=== PATIENT | male | born 1960 | race Caucasian/White ===

== ENCOUNTER 2025-01-03 06:16 | Day surgery (SDC) | payer OTHER, SELFPAY | END 2025-01-03 15:51 | disposition home or self-care (01) | LOC: GI 06:16 | PROVIDERS: ATTENDING PHYSICIAN Internal Medicine Gastroenterology | DX: Z12.11 Encounter for screening for malignant neoplasm of colon (principal); Z86.0100 Personal history of colon polyps, unspecified; K64.8 Other hemorrhoids | CPT/HCPCS: G0105 ==